=== PATIENT | female | born 1990 | race Caucasian/White ===

== ENCOUNTER 2019-02-11 06:19 | Emergency (ER) | payer OTHER ==
[2019-02-11] MEDS ORDERED: SODIUM CHLORIDE 0.9% 1,000 ML IV ONE (06:33)
[2019-02-11] MEDS ORDERED: ONDANSETRON 4 MG/2 ML VIAL IVP STA ×2 (06:43→07:51)
[2019-02-11 06:45] LABS: BASOPHILS % (AUTO) 0.3 %; EOSINOPHILS % (AUTO) 0.2 %; HGB - HEMOGLOBIN 14.4 g/dL (12.0-16.0); LYMPHOCYTES # (AUTO) 0.8 10^3/uL (1.5-3.5); LYMPHOCYTES % (AUTO) 7.6 %; MEAN CORPUSCULAR HEMOGLOBIN 30.3 pg (27.0-31.0); MEAN CORPUSCULAR HGB CONC 32.9 g/dL (32.0-36.0); MEAN PLATELET VOLUME 9.8 fL (7.9-10.8); MONOCYTES # (AUTO) 0.6 10^3/uL (0.0-1.0); MONOCYTES % (AUTO) 5.8 %; NEUTROPHILS # (AUTO) 8.8 10^3/uL (1.5-6.6); NEUTROPHILS % (AUTO) 85.7 %; PLT - PLATELET COUNT 309 10^3/uL (130-450); RED BLOOD COUNT 4.76 10^6/uL (4.20-5.40); RED CELL DISTRIBUTION WIDTH 12.2 % (12.0-15.0); WHITE BLOOD COUNT 10.2 x10^3/uL (4.8-10.8)
[2019-02-11 06:58] LABS: ALBUMIN 4.5 g/dL (3.2-5.5); ALBUMIN/GLOBULIN RATIO 1.3 (1.0-2.2); BILIRUBIN,TOTAL 0.9 mg/dL (0.2-1.0); CALCIUM 9.4 mg/dL (8.5-10.3); CREATININE 0.7 mg/dL (0.4-1.0); TOTAL PROTEIN 8.1 g/dL (6.7-8.2)
[2019-02-11 07:02] LABS: GLUCOSE, URINE (UA) NEGATIVE (NEGATIVE); KETONES,URINE (UA) 40 mg/dL (NEGATIVE); LEUKOCYTE ESTERASE, URINE NEGATIVE (NEGATIVE); NITRITE,URINE NEGATIVE (NEGATIVE); OCCULT BLOOD,URINE MODERATE (NEGATIVE); PROTEIN,URINE NEGATIVE (NEGATIVE); UROBILINOGEN,URINE 0.2 (NORMAL) E.U./dL (NORMAL)
[2019-02-11 07:05] LABS: BILIRUBIN,URINE NEGATIVE (NEGATIVE); CLARITY,URINE CLEAR (CLEAR); HCG UR QUAL NEGATIVE; ICTOTEST,URINE NEGATIVE
[2019-02-11 07:07] LABS: BACTERIA,URINE Few /HPF (None Seen); SQUAMOUS EPITHELIAL CELL,UR MOD Squamous (<= Few)
--- NOTE | 2019-02-11 07:30 | ED Physician Documentation ---
History of Present Illness - Stated complaint Stated Complaint: FEVER/DIARRHEA - Chief complaint Chief Complaint: Abd Pain - Additonal information Additional information: This is a 28-year-old female with a history of asthma who presents with nausea vomiting diarrhea general achiness of her abdomen. This began yesterday, she has vomited about 6 times since then, she is also had multiple episodes of loose stool and diarrhea which is watery. Her emesis and diarrhea are both nonbloody. She has had fever. She also has abdominal pain which is migratory, she additionally developed some achy back on her bilateral lower back, she states this happened after vomiting and she thinks it might of been from leaning over and retching. Her brother is sick with identical symptoms. There is also an infant 2 days ago at [place] that had similar symptoms at a dinner they went to. She does have slight discomfort with urination. Review of Systems Constitutional: reports: Fever GI: reports: Nausea, Vomiting Skin: denies: Rash PD PAST MEDICAL HISTORY - Past Medical History Past Medical History: Yes Respiratory: Asthma - Past Surgical History Past Surgical History: No - Present Medications Home Medications: Ambulatory Orders Medication Instructions Recorded Confirmed Ondansetron Odt [Zofran] 4 mg TL Q6H PRN #10 tablet 02/11/19 - Allergies Allergies/Adverse Reactions: Allergies Allergy/AdvReac Type Severity Reaction Status Date / Time No Known Drug Allergies Allergy Verified 02/11/19 06:27 - Social History Does the pt smoke?: No Smoking Status: Never smoker Does the pt drink ETOH?: No Does the pt have substance abuse?: No - Immunizations Immunizations are current?: Yes - POLST Patient has POLST: No PD ED PE NORMAL - Vitals Vital signs reviewed: Yes - General General: Alert and oriented X 3, No acute distress - HEENT HEENT: PERRL - Neck Neck: Supple, no meningeal sign - Cardiac Cardiac: No murmur, Other (Regular rate and 90s on my examination.) - Respiratory Respiratory: No respiratory distress, Clear bilaterally - Abdomen Abdomen: Soft, Non distended, Other (Very mild discomfort with deep palpation in left upper quadrant, otherwise no tenderness, particularly none in the right upper or right lower quadrant. No guarding) - Derm Derm: Warm and dry - Extremities Extremities: No deformity - Neuro Neuro: Alert and oriented X 3 - Psych Psych: Normal mood, Normal affect Results - Vitals Vitals: Vital Signs - 24 hr 02/11/19 06:24 Temperature 37.4 C Heart Rate 122 H Respiratory 18 Rate Blood Pressure 120/66 O2 Saturation 97 Oxygen O2 Source Room air - Labs Labs: Laboratory Tests 02/11/19 02/11/19 02/11/19 06:40 06:40 06:49 WBC 10.2 RBC 4.76 Hgb 14.4 Hct 43.8 MCV 92.0 MCH 30.3 MCHC 32.9 RDW 12.2 Plt Count 309 MPV 9.8 Neut # (Auto) 8.8 H Lymph # (Auto) 0.8 L Lander # (Auto) 0.6 Eos # (Auto) 0.0 Baso # (Auto) 0.0 Absolute Nucleated RBC 0.00 Nucleated RBC % 0.0 Sodium 136 Potassium 3.3 L Chloride 102 Carbon Dioxide 26 Anion Gap 8.0 BUN 12 Creatinine 0.7 Estimated GFR (MDRD) 101 Glucose 117 H Calcium 9.4 Total Bilirubin 0.9 AST 25 ALT 15 Alkaline Phosphatase 55 Total Protein 8.1 Albumin 4.5 Globulin 3.6 Albumin/Globulin Ratio 1.3 Lipase 31 Urine Color YELLOW Urine Clarity CLEAR Urine pH 6.0 Ur Specific Cope 1.025 Urine Protein NEGATIVE Urine Glucose (UA) NEGATIVE Urine Ketones 40 H Urine Occult Blood MODERATE H Urine Nitrite NEGATIVE Urine Bilirubin NEGATIVE Urine Urobilinogen 0.2 (NORMAL) Ur Leukocyte Esterase NEGATIVE Urine RBC 6-10 H Urine WBC 0-3 Ur Squamous Epith Cells MOD Squamous H Urine Bacteria Few Ur Microscopic Review INDICATED Urine Culture Comments NOT INDICATED Urine HCG, Qual NEGATIVE PD MEDICAL DECISION MAKING - ED course Complexity details: considered differential (Gastroenteritis, appendicitis, norovirus, electrolyte abnormality) ED course: On arrival to triage patient is tachycardic. IV was inserted labs are drawn and patient was given labs are unremarkable other than a mild hypokalemia. Urinalysis is negative for infection. On repeat examination after fluids and Zofran patient is feeling better and is tolerating p.o. Given her onset of symptoms that identical time to have a known sick contact, I this appears to be a viral gastroenteritis. Her abdomen is benign and she has no focal tenderness. She has a very mild paraspinous tenderness in her back, no midline tenderness. This is likely a bit of a muscle strain from, given it started after multiple episodes of vomiting. I prescribed Zofran, discussed supportive care with an emphasis on consistent fluid intake, and reviewed return precautions With any new or worsening symptoms. I also reviewed the fact that this is a infectious process and emphasized the importance of good Hygiene. Patient agreed, was feeling well and was discharged home in the care of family. Departure - Departure Disposition: Home, Self Care Clinical Impression: Gastroenteritis Condition: Good Instructions: ED Gastroenteritis Viral Prescriptions: Ondansetron Odt [Zofran] 4 mg TL Q6H PRN #10 tablet PRN Reason: Nausea / Vomiting Comments: It appears you have viral gastroenteritis. You may take the Zofran for nausea/vomiting and please stay well-hydrated. If you are having vomiting despite the Zofran, increasing abdominal pain, blood in your stool or vomit, or any other concerning symptoms please return to the emergency department. You are infectious, so make sure that you practice good hygiene. Forms: Activity restrictions
[2019-02-11 09:15] VITALS: BP 122/74
== END 2019-02-11 09:15 | disposition home or self-care (01) ==
LOC: ED 06:19
DX: K52.9 Noninfective gastroenteritis and colitis, unspecified (principal); R00.0 Tachycardia, unspecified; E87.6 Hypokalemia
CPT/HCPCS: 36415; 80053; 81001; 81003; 81025; 83690; 85025; 87086; 96361; 96374; 96376; 99283